=== PATIENT | male | born 1940 | race Caucasian/White ===

== ENCOUNTER 2019-04-10 06:03 | Emergency (ER) | payer MEDICARE, BC ==
--- NOTE | 2019-04-10 06:34 | EDM.PDOC ---
<Arturo Baker - Last Filed: 04/10/19 06:57> ED HPI GENERAL MEDICAL PROBLEM - General Chief Complaint: Abdominal Pain Stated Complaint: DIZZY,ABDOMINAL TENDERNESS Time Seen by Provider: 04/10/19 06:14 Source of Information: Reports: Patient, RN Notes Reviewed, Other (Neighbor who brought pt to the ED) History Limitations: Reports: No Limitations - History of Present Illness INITIAL COMMENTS - FREE TEXT/NARRATIVE: The patient states that he went on a fishing trip, and miscalculated his medications. He states that he has a history of BPH, but wound up skipping his prostate medications for 3-4 days at the beginning of this week. He resumed taking them on 04/08/2019 and yesterday, 04/09/2019, but he has not taken them today. His last urine stream was about a week ago, although he has has "little squirts" since then. His last bowel movement was about one week ago. He states that he started feeling abdominal bloating and pain with movement around 17:00 to 18;00 last evening. He took 2 bisacodyl around 17:00. He developed nausea and lightheadedness when upright around 23:00, then had some emesis around 02:00 this morning. No recent fever. No back or flank pain. The patient states that he does not have a history of constipation. The patient's PCP is Dr. Lew. The patient's Urologist, whose name he does not recall, is at [facility]. Abdominal Pain Score (Numeric/FACES): 8 - Related Data Allergies Allergy/AdvReac Type Severity Reaction Status Date / Time No Known Allergies Allergy Verified 04/10/19 06:14 Home Meds: Home Meds Tamsulosin HCl 04/10/19 [History] Terazosin [Hytrin] 04/10/19 [History] Past Medical History Cardiovascular History: Reports: High Cholesterol (untreated) Genitourinary History: Reports: BPH Musculoskeletal History: Reports: Fracture (left clavicle) - Past Surgical History HEENT Surgical History: Reports: Oral Surgery (wisdom teeth extraction) GI Surgical History: Reports: Appendectomy, Cholecystectomy Musculoskeletal Surgical History: Reports: ORIF (left clavicle) Social & Family History - Tobacco Use Smoking Status *Q: Never Smoker - Alcohol Use Alcohol Use History: Yes Alcohol Use Frequency: Socially - Recreational Drug Use Recreational Drug Use: No - Living Situation & Occupation Living situation: Reports: , Alone ( is at [facility]) Occupation: Retired ED ROS GENERAL - Review of Systems Review Of Systems: ROS reveals no pertinent complaints other than HPI. ED EXAM, GENERAL - Physical Exam Exam: See Below Exam Limited By: No Limitations General Appearance: Alert, WD/WN, No Apparent Distress Eye Exam: Bilateral Eye: EOMI, Normal Inspection Ears: Normal External Exam, Hearing Grossly Normal Nose: Normal Inspection Throat/Mouth: Normal Inspection, Normal Lips, Normal Voice, No Airway Compromise Head: Atraumatic, Normocephalic Neck: Normal Inspection, Full Range of Motion Respiratory/Chest: No Respiratory Distress, Lungs Clear, Normal Breath Sounds, No Accessory Muscle Use Cardiovascular: Normal Peripheral Pulses, Regular Rate, Rhythm, No Gallop, No JVD, No Murmur, No Rub Peripheral Pulses: 4+: Radial (L), Radial (R) GI/Abdominal: Normal Bowel Sounds, No Distention, No Abnormal Bruit, Tender ( Firm/full bladder, tender to palpation), Other (Obese) (Male) Exam: Deferred Rectal (Males) Exam: Deferred Back Exam: Normal Inspection, Full Range of Motion. No: CVA Tenderness (L), CVA Tenderness (R) Extremities: Normal Inspection, Normal Range of Motion, Normal Capillary Refill , Other (Trace to 1+ pretibial pitting edema - chronic) Neurological: Alert, Oriented, Normal Cognition, No Motor/Sensory Deficits Psychiatric: Normal Affect Skin Exam: Warm, Dry, Intact, Normal Color, No Rash Course - Vital Signs Last Recorded V/S: Last Vital Signs Temp 36.9 C 04/10/19 06:11 Pulse 90 04/10/19 06:11 Resp 18 04/10/19 06:11 BP 158/92 H 04/10/19 06:11 Pulse Ox 98 04/10/19 06:11 - Orders/Labs/Meds Orders: Active Orders 24 hr Category Date Time Status Bladder Scan [RC] ASDIRECTED Care 04/10/19 06:18 Active Steinberg Catheter Insertion [Insert Urinary Catheter] [OM. Care 04/10/19 06:45 Ordered PC] Q24H Orthostatic Vital Signs [RC] STAT Care 04/10/19 06:18 Active Urinary Catheter Assessment [RC] ASDIRECTED Care 04/10/19 06:37 Active KUB [Abdomen 1V Flat] [CR] Stat Exams 04/10/19 06:17 Taken Labs: Laboratory Tests 04/10/19 Range/Units 07:10 Urine Color Yellow (Yellow) Urine Appearance Clear (Clear) Urine pH 6.0 (5.0-8.0) Ur Specific [place] 1.020 (1.005-1.030) Urine Protein 1+ H (Negative) Urine Glucose (UA) Negative (Negative) Urine Ketones Negative (Negative) Urine Occult Blood 1+ H (Negative) Urine Nitrite Negative (Negative) Urine Bilirubin Negative (Negative) Urine Urobilinogen 0.2 (0.2-1.0) Ur Leukocyte Esterase Negative (Negative) Urine RBC 5-10 H (0-5) /hpf Urine WBC 0-5 (0-5) /hpf Ur Squamous Epith Cells 0-5 (0-5) /hpf Amorphous Sediment Few H (NOT SEEN) /hpf Urine Bacteria Few (FEW) /hpf Urine Mucus Few (FEW) /hpf Meds: Medications Discontinued Medications Generic Name Dose Route Start Last Admin Trade Name Coby PRN Reason Stop Dose Admin Lidocaine HCl 10 ml 04/10/19 06:38 04/10/19 07:00 Xylocaine 2% Jelly MUCMEM 04/10/19 06:39 10 ml ONETIME ONE Administration - Re-Assessments/Exams Free Text/Narrative Re-Assessment/Exam: 04/10/19 06:32 On examination, the patient appears to have a very full bladder, likely due to urinary retention because of skipping his prostate medications. It is possible that his bladder is so full that it is putting retrograde pressure on his rectum , causing constipation. I have therefore ordered a bladder scan and a KUB. Because of the patient's complaint of lightheadedness when upright since late last night, I have ordered orthostatics. At this time, I don't see the need for blood work, but that may change based on his findings. 04/10/19 06:34 Notified by Jaquelin CALLES that the bladder scan is indicating 1100 mL of urine. 04/10/19 06:38 I gave the patient the option of draining his bladder with a catheter, with either leaving the catheter in place, or removing it. I explained that if it is removed, the patient may be back here in a few hours, again unable to urinate. The patient preferred leaving the catheter in place. I have ordered a Urojet and a Steinberg catheter to a leg bag along with a urinalysis. 04/10/19 06:[address] Lentz, and care of the patient turned over to him at this time, for change of shift. Departure - Departure Disposition: Home, Self-Care 01 Clinical Impression: Urinary retention due to benign prostatic hyperplasia Abdominal pain Qualifiers: Abdominal location: lower abdomen, unspecified Qualified Code(s): R10.30 - Lower abdominal pain, unspecified - Discharge Information Instructions: Benign Prostatic Hyperplasia, Acute Urinary Retention, Male Referrals: Emiliano Lew MD [Primary Care Provider] - Forms: ED Department Discharge Additional Instructions: Evaluation the emergency room this morning in regards to development of urinary retention over the last week. This appears to be secondary to unavailability of normal medications that you take for an enlarged prostate. Identified 1100 mils of urine in the urinary bladder at the time of bladder scan. He also identified significant problems trying to have a bowel movement the last week or so. Constipation is caused by urinary retention and vice versa. You're treated with a Steinberg catheter to decompress the urinary bladder. An x-ray of the abdomen reveals a small amount of stool in the cecum or right lower colon but the rectal vault is empty. There is a small amount of small bowel dilatation in the left upper quadrant and which will resolve as the day goes on once the urinary retention has been relieved. It is my suggestion of the Steinberg catheter remain in place for 3 days to allow the bladder told to return. You could remove the Steinberg catheter in 3 days time. Of course return to medical care if you are unable to void within 8-10 hours of catheter removal. The urinalysis did not detect any signs of urinary tract infection. Follow-up with personal care physician or urologist if any further problems occur or return to the ED. <Josiah Lentz - Last Filed: 04/10/19 07:55> Course - Re-Assessments/Exams Free Text/Narrative Re-Assessment/Exam: 04/10/19 07:30: Care was assumed from Dr. Hawley at change of shift. KUB is completed it reveals some stool in the cecum but the remainder the colon is for the most part empty particularly the rectal vault. There is an ileus type pattern with several dilated loops of small bowel in the left hemiabdomen but no signs of bowel obstruction. Patient feels markedly improved since bladder decompression with Steinberg catheter. Awaiting urinalysis. 04/10/19 07:48Urinalysis shows 1+ protein 1+ occult blood 5-10 RBCs but no pus cells. Plan will be to leave the Steinberg catheter in for 3 days to allow the bladder tone to return. He has restarted his medications for his prostate gland which includes prazosin and Flomax. Patient advised of the findings. Plan will be to have him remove his Steinberg catheter in 3 days time since he feels quite carpal in doing so as he practice pattern her medicine most of his life. He will follow-up of course if he cannot void within 8 hours of catheter removal. Departure - Departure Time of Disposition: 07:51 Condition: Fair - Discharge Information *PRESCRIPTION DRUG MONITORING PROGRAM REVIEWED*: Not Applicable *COPY OF PRESCRIPTION DRUG MONITORING REPORT IN PATIENT ARCELIA: Not Applicable
[2019-04-10] MEDS ORDERED: Lidocaine 2% Jelly 10 ML Urojet MUCMEM ONE (06:38)
--- NOTE | 2019-04-11 07:21 | CR ---
Abdomen: Supine view of the abdomen was obtained. Comparison: No previous study. Bowel gas pattern shows slight increased small bowel gas within the left abdomen. Gas within colon is seen which is unremarkable. Degenerative change is noted within the spine. Calcifications are seen within the pelvis compatible with phleboliths. Joint space narrowing is seen within the right hip. Impression: 1. Slightly prominent small bowel gas within the left abdomen most likely due to swallowed air. 2. Other incidental findings. Nothing acute is seen. Diagnostic code #2
== END 2019-04-10 08:04 | disposition home or self-care (01) ==
LOC: JD.ED 06:03
DX: N40.1 Benign prostatic hyperplasia with lower urinary tract symptoms (principal); R33.9 Retention of urine, unspecified
CPT/HCPCS: 51702; 51798; 74018; 74018-26; 81001; 99283; 99284-25

== ENCOUNTER 2019-04-12 13:51 | Emergency (ER) | payer MEDICARE, BC ==
[2019-04-12] MEDS ORDERED: Lidocaine 2% Jelly 10 ML Urojet MUCMEM ONE (14:09)
--- NOTE | 2019-04-12 14:14 | EDM.PDOC ---
ED HPI GENERAL MEDICAL PROBLEM - General Chief Complaint: Genitourinary Problem Stated Complaint: UNABLE TO URINATE Time Seen by Provider: 04/12/19 14:08 Source of Information: Reports: Patient History Limitations: Reports: No Limitations - History of Present Illness INITIAL COMMENTS - FREE TEXT/NARRATIVE: 78-year-old male presents to the ED unable to void since Steinberg catheter is removed 8 hours ago. Diffuse lower abdominal pain with some cramping. Unable to express any urine whatsoever. Once Steinberg is been in for the last 3 days he had no problem passing his bowels. He has been scheduled for urology appointment tomorrow in [place]. Leaves his last PSA was around 4.2. He took the catheter out about 8:00 this morning and is about 1400 hrs. 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.) - Related Data Allergies Allergy/AdvReac Type Severity Reaction Status Date / Time No Known Allergies Allergy Verified 04/12/19 14:00 Home Meds: Home Meds Terazosin [Hytrin] 10 mg PO DAILY 04/10/19 [History] Finasteride [Proscar] 5 mg PO DAILY 04/12/19 [History] Past Medical History Cardiovascular History: Reports: High Cholesterol Respiratory History: Reports: None Genitourinary History: Reports: BPH Musculoskeletal History: Reports: Fracture Neurological History: Reports: None Psychiatric History: Reports: None Endocrine/Metabolic History: Reports: None Hematologic History: Reports: None Immunologic History: Reports: None Oncologic (Cancer) History: Reports: None Dermatologic History: Reports: None - Infectious Disease History Infectious Disease History: Reports: None - Past Surgical History Head Surgeries/Procedures: Reports: None HEENT Surgical History: Reports: Oral Surgery GI Surgical History: Reports: Appendectomy, Cholecystectomy Musculoskeletal Surgical History: Reports: ORIF Social & Family History - Caffeine Use Caffeine Use: Reports: None - Recreational Drug Use Recreational Drug Use: No - Living Situation & Occupation Living situation: Reports: , Alone ( is at [facility] [employer]) Occupation: Retired ED ROS GENERAL - Review of Systems Review Of Systems: See Below Constitutional: Reports: No Symptoms HEENT: Reports: No Symptoms Respiratory: Reports: No Symptoms Cardiovascular: Reports: No Symptoms Endocrine: Reports: No Symptoms GI/Abdominal: Reports: Abdominal Pain (See history of present illness.) : Reports: Urinary Retention (Presents once again in urinary retention. Has known BPH and is on Proscar and Flomax for many years.), Other (Known BPH for many years. He's been on Proscar for many years and it suspect that he was also on Flomax with the Proscar up until a short period of time ago.) Musculoskeletal: Reports: Joint Pain Skin: Reports: No Symptoms (Occasional pain knees hips low back and neck.) Neurological: Reports: No Symptoms Psychiatric: Reports: No Symptoms Hematologic/Lymphatic: Reports: No Symptoms Immunologic: Reports: No Symptoms ED EXAM, RENAL/ - Physical Exam Exam: See Below Exam Limited By: No Limitations General Appearance: Alert, WD/WN, Mild Distress (He is obviously quite uncomfortable.) Respiratory/Chest: No Respiratory Distress, Lungs Clear, Normal Breath Sounds, No Accessory Muscle Use Cardiovascular: Normal Peripheral Pulses, Regular Rate, Rhythm, No Edema, No Gallop, No Murmur, No Rub GI/Abdominal: Non-Tender, No Organomegaly, Pelvis Stable, Distended (Bowel sounds are quiet sent in all 4 quadrants distended and tympanitic to percussion up to the umbilicus.), Abnormal Bowel Sounds Back Exam: Normal Inspection, Full Range of Motion. No: CVA Tenderness (L), CVA Tenderness (R) Extremities: Normal Inspection, Normal Range of Motion, Non-Tender, No Pedal Edema Neurological: Alert, Oriented, CN II-XII Intact, Normal Cognition Psychiatric: Normal Affect, Normal Mood Skin Exam: Warm, Dry, Intact, Normal Color, No Rash Course - Vital Signs Last Recorded V/S: Last Vital Signs Temp 36.8 C 04/12/19 13:57 Pulse 70 04/12/19 13:57 Resp 18 04/12/19 13:57 BP 137/76 04/12/19 13:57 Pulse Ox 95 04/12/19 13:57 - Orders/Labs/Meds Orders: Active Orders 24 hr Category Date Time Status Bladder Irrigation [RC] BID Care 04/12/19 14:08 Active Steinberg Catheter Insertion [Insert Urinary Catheter] [OM. Care 04/12/19 14:15 Ordered PC] Q24H Urinary Catheter Assessment [RC] ASDIRECTED Care 04/12/19 14:09 Active URINALYSIS W/MICROSCOPIC [UA W/MICROSCOPIC] [URIN] Stat Lab 04/12/19 15:02 Ordered Meds: Medications Discontinued Medications Generic Name Dose Route Start Last Admin Trade Name Coby PRN Reason Stop Dose Admin Levofloxacin 500 mg 04/12/19 15:01 Levaquin PO 04/12/19 15:02 ONETIME ONE Lidocaine HCl 10 ml 04/12/19 14:09 04/12/19 14:23 Xylocaine 2% Jelly MUCMEM 04/12/19 14:10 10 ml ONETIME ONE Administration - Radiology Interpretation Free Text/Narrative:: 78-year-old male presents to the ED with acute urinary retention. Patient had troubles while he was away fishing over the last week and he had forgotten his medications that he's been taking long-term for benign prostatic hypertrophy. This includes according to the patient both Proscar and Flomax. Once he got home weighted find that he was in urinary retention and a Steinberg catheter was placed in the ED and he was advised to resume his medications which he already done so. Advise Steinberg catheter for 3 days and then remove it and see if he could void on his own. He remove the Steinberg catheter 8:00 this morning and is now 1400 hrs. and he's been unable to void and is feeling quite uncomfortable in the lower abdomen. Clinically the bladder is palpable up to the umbilicus suggesting over thousand mils in his bladder. Plan will be to reintroduce a Steinberg catheter to gravity drainage to a leg bag. He has an appointment to see him I Dr. Cano tomorrow in [place] was a urologist. There is some question as to whether he is supposed to be on Flomax with Proscar. - Re-Assessments/Exams Free Text/Narrative Re-Assessment/Exam: 04/12/19 15:06 Steinberg catheter placed and drainage of clear urine greater than 700 mils noted at this time. A sample is to be sent for analysis. He will be given Levaquin 500 mg by mouth due to recent instrumentation i.e. in and out of Steinberg catheter to prevent any bacteremia. Departure - Departure Time of Disposition: 15:00 Disposition: Home, Self-Care 01 Condition: Fair Clinical Impression: Acute urinary retention, Benign prostatic hyperplasia with urinary obstruction - Discharge Information *PRESCRIPTION DRUG MONITORING PROGRAM REVIEWED*: Not Applicable *COPY OF PRESCRIPTION DRUG MONITORING REPORT IN PATIENT ARCELIA: Not Applicable Referrals: Emiliano Lew MD [Primary Care Provider] - Forms: ED Department Discharge Additional Instructions: Evaluation the emergency room today in regards to recurrence of urinary retention after removing the Steinberg catheter at 8:00 this morning. You have been unable to void. Steinberg catheter was therefore reinserted to provide drainage of urine until you can follow-up with urology services tomorrow. He will need a cystoscopy which means a scope look in the bladder to see where the obstruction is provided by history you're enlarged prostate is most likely the culprit. Once medications no longer are effectual surgeries usually indicated. You were given 1 tablet of Levaquin 500 mg in the ED to prevent any urinary tract infection from occurring from recurrent placement of Steinberg catheter. - My Orders Last 24 Hours: My Active Orders 04/12/19 14:08 Bladder Irrigation [RC] BID 04/12/19 14:09 Urinary Catheter Assessment [RC] ASDIRECTED 04/12/19 14:15 Steinberg Catheter Insertion [Insert Urinary Catheter] [OM.PC] Q24H 04/12/19 15:02 URINALYSIS W/MICROSCOPIC [UA W/MICROSCOPIC] [URIN] Stat - Assessment/Plan Last 24 Hours: My Active Orders 04/12/19 14:08 Bladder Irrigation [RC] BID 04/12/19 14:09 Urinary Catheter Assessment [RC] ASDIRECTED 04/12/19 14:15 Steinberg Catheter Insertion [Insert Urinary Catheter] [OM.PC] Q24H 04/12/19 15:02 URINALYSIS W/MICROSCOPIC [UA W/MICROSCOPIC] [URIN] Stat
[2019-04-12] MEDS ORDERED: Levofloxacin 250 MG Tab PO ONE (15:01)
== END 2019-04-12 15:46 | disposition home or self-care (01) ==
LOC: JD.ED 13:51
DX: N40.1 Benign prostatic hyperplasia with lower urinary tract symptoms (principal); R33.8 Other retention of urine; E78.00 Pure hypercholesterolemia, unspecified; Z79.899 Other long term (current) drug therapy
CPT/HCPCS: 51702; 51798; 81001; 99283; A9270

== ENCOUNTER 2019-11-25 08:02 | Emergency (ER) | payer MEDICARE, BC ==
[2019-11-25] MEDS ORDERED: Albuterol/Ipratropium 3.0-0.5 MG/3 ML Neb Soln NEB ONE ×2 (08:48→10:56)
--- NOTE | 2019-11-25 08:48 | EDM.PDOC ---
<Meredith Paul - Last Filed: 11/25/19 08:37> ED HPI GENERAL MEDICAL PROBLEM - General Chief Complaint: Respiratory Problem Stated Complaint: SOB Time Seen by Provider: 11/25/19 08:24 Source of Information: Reports: Patient History Limitations: Reports: No Limitations - History of Present Illness INITIAL COMMENTS - FREE TEXT/NARRATIVE: 79-year-old male presents with cough and shortness of breath that has been going on for about a week. He states that they came on at roughly the same time. The cough is productive, producing a clear mucus. Shortness of breath is worse with activity and states that his chest feels "tight". His cough and shortness of breath gets worse with warm air (being indoors) and improves with cold air and ventolin. He states that he has been trying his 's ventolin that she had gotten last year and it seems to give him relief for about 10 minutes. He has also been using guaifenesin that has been mildly beneficial. The patient denies any history of heart or lung conditions. He also denies chest pain, congestion, ear pain, sore throat, body aches, fever/chills, nausea/ vomiting, and changes to stools. Duration: Constant Location: Reports: Chest Improves with: Reports: Cold Therapy (going outside), Medication (ventolin ) Worsens with: Reports: Heat Therapy (being indoors) Associated Symptoms: Reports: cough w sputum, Shortness of Breath. Denies: Fever/Chills, Headaches, Nausea/Vomiting Treatments DAMAGE APPRAISER: Reports: Breathing Treatments (ventolin), Other (see below) ( guaifenesin ) - Related Data Allergies Allergy/AdvReac Type Severity Reaction Status Date / Time No Known Allergies Allergy Verified 11/25/19 08:23 Home Meds: Home Meds Terazosin [Hytrin] 10 mg PO DAILY 04/10/19 [History] Finasteride [Proscar] 5 mg PO DAILY 04/12/19 [History] Albuterol [Proventil HFA] 2 puff INH Q4H PRN #1 inhaler 11/25/19 [Rx] Azithromycin [Zithromax] 250 mg PO DAILY #6 tab 11/25/19 [Rx] Codeine/Promethazine [Phenergan with Codeine] 5 - 10 ml PO Q6HR PRN #300 ml [Rx] Past Medical History Cardiovascular History: Reports: High Cholesterol Respiratory History: Reports: None Genitourinary History: Reports: BPH Musculoskeletal History: Reports: Fracture Neurological History: Reports: None Psychiatric History: Reports: None Endocrine/Metabolic History: Reports: None Hematologic History: Reports: None Immunologic History: Reports: None Oncologic (Cancer) History: Reports: None Dermatologic History: Reports: None - Infectious Disease History Infectious Disease History: Reports: None - Past Surgical History Head Surgeries/Procedures: Reports: None HEENT Surgical History: Reports: Oral Surgery GI Surgical History: Reports: Appendectomy, Cholecystectomy Musculoskeletal Surgical History: Reports: ORIF Social & Family History - Tobacco Use Smoking Status *Q: Current Some Day Smoker Years of Tobacco use: 30 Packs/Tins Daily: 0.1 - Caffeine Use Caffeine Use: Reports: None - Recreational Drug Use Recreational Drug Use: No - Living Situation & Occupation Living situation: Reports: , Alone ( is at [facility]) Occupation: Retired ED ROS GENERAL - Review of Systems Review Of Systems: See Below Constitutional: Reports: No Symptoms HEENT: Reports: No Symptoms Respiratory: Reports: Shortness of Breath, Wheezing, Cough, Sputum. Denies: Pleuritic Chest Pain, Hemoptysis Cardiovascular: Reports: No Symptoms GI/Abdominal: Reports: No Symptoms : Reports: No Symptoms, Other (BPH) Musculoskeletal: Reports: No Symptoms Skin: Reports: No Symptoms Neurological: Reports: No Symptoms Psychiatric: Reports: No Symptoms Hematologic/Lymphatic: Reports: No Symptoms Immunologic: Reports: No Symptoms ED EXAM, GENERAL - Physical Exam Exam: See Below Exam Limited By: No Limitations General Appearance: Alert, WD/WN, Mild Distress (coughing during visit) Ears: Normal External Exam, Normal Canal, Hearing Grossly Normal, Normal TMs Nose: Normal Inspection, Normal Mucosa, No Blood Throat/Mouth: Normal Inspection, Normal Lips, Normal Teeth, Normal Gums, Normal Oropharynx, Normal Voice, No Airway Compromise Neck: Normal Inspection, Supple, Non-Tender, Full Range of Motion. No: Lymphadenopathy (L), Lymphadenopathy (R) Respiratory/Chest: No Accessory Muscle Use, Chest Non-Tender, Respiratory Distress (coughing), Wheezing Cardiovascular: Normal Peripheral Pulses, Regular Rate, Rhythm, No Murmur Neurological: Alert, Oriented, Normal Cognition, No Motor/Sensory Deficits Psychiatric: Normal Affect, Normal Mood Skin Exam: Warm, Dry, Intact, Normal Color, No Rash Lymphatic: No Adenopathy Course - Vital Signs Last Recorded V/S: Last Vital Signs Temp 97.7 F 11/25/19 08:20 Pulse 72 11/25/19 08:20 Resp 19 11/25/19 08:20 BP 146/73 H 11/25/19 08:20 Pulse Ox 95 11/25/19 11:01 - Orders/Labs/Meds Orders: Active Orders 24 hr Category Date Time Status RT Aerosol Therapy [RC] ASDIRECTED Care 11/25/19 08:48 Active RT Aerosol Therapy [RC] ASDIRECTED Care 11/25/19 10:56 Active Meds: Medications Discontinued Medications Generic Name Dose Route Start Last Admin Trade Name Eddieq PRN Reason Stop Dose Admin Albuterol/Ipratropium 3 ml 11/25/19 08:48 11/25/19 09:06 Duoneb 3.0-0.5 Mg/3 Ml NEB 11/25/19 08:49 3 ml ONETIME ONE Administration Albuterol/Ipratropium 3 ml 11/25/19 10:56 11/25/19 11:00 Duoneb 3.0-0.5 Mg/3 Ml NEB 11/25/19 10:57 3 ml ONETIME ONE Administration Departure - Departure Disposition: Home, Self-Care 01 Clinical Impression: Bronchitis - Discharge Information Prescriptions: Codeine/Promethazine [Phenergan with Codeine] 5 - 10 ml PO Q6HR PRN #300 ml PRN Reason: Cough Albuterol [Proventil HFA] 2 puff INH Q4H PRN #1 inhaler PRN Reason: Shortness Of Breath Azithromycin [Zithromax] 250 mg PO DAILY #6 tab Referrals: Emiliano Lew MD [Primary Care Provider] - 1 Week Forms: ED Department Discharge Additional Instructions: Take the zithromax 2 pills on day 1 and 1 pill on day 2 through 5. Use the inhaler 2 puffs every 4 to 6 hours as needed for shortness of breath. Use the phenergan with codeine 5 to 10mls every 6 hours as needed for cough. Please return if you are worse. Sepsis Event Note - Evaluation Sepsis Screening Result: No Definite Risk - Focused Exam Vital Signs: Vital Signs Temp Pulse Resp BP Pulse Ox Pulse Ox 11/25/19 11:01 95 11/25/19 09:06 97 11/25/19 08:20 97.7 F 72 19 146/73 H 96 Date Exam was Performed: 11/25/19 Time Exam was Performed: 08:37 - My Orders Last 24 Hours: My Active Orders 11/25/19 08:48 RT Aerosol Therapy [RC] ASDIRECTED 11/25/19 10:56 RT Aerosol Therapy [RC] ASDIRECTED - Assessment/Plan Last 24 Hours: My Active Orders 11/25/19 08:48 RT Aerosol Therapy [RC] ASDIRECTED 11/25/19 10:56 RT Aerosol Therapy [RC] ASDIRECTED <Lamin Paul - Last Filed: 11/25/19 11:17> Course - Re-Assessments/Exams Free Text/Narrative Re-Assessment/Exam: 11/25/19 11:11 I examined the patient myself and I agree with Meredith's assessment and plan. I ordered a CXR, duoneb and influenza. His CXR looks good. The influenza was negative. He did feel better with the duoneb. I will get him on some albuterol , zithromax, and phenergan with codeine. Departure - Departure Time of Disposition: 11:15 Condition: Good - Discharge Information *PRESCRIPTION DRUG MONITORING PROGRAM REVIEWED*: No *COPY OF PRESCRIPTION DRUG MONITORING REPORT IN PATIENT ARCELIA: No Sepsis Event Note - Focused Exam Date Exam was Performed: 11/25/19 Time Exam was Performed: 11:10
--- NOTE | 2019-11-25 09:57 | CR ---
Chest: Two views of the chest were obtained. Comparison: No prior chest imaging. Heart size and mediastinum are normal. Lungs are clear with no acute parenchymal change. Diffuse endplate spurring is noted throughout the thoracic spine. Vertebral body heights are maintained. Minimal scoliosis is also noted. Impression: 1. Findings as noted above. 2. Nothing acute is appreciated on two-view chest x-ray. Diagnostic code #2 This report was dictated in [place] Standard Time
== END 2019-11-25 11:44 | disposition home or self-care (01) ==
LOC: JD.ED 08:02
DX: J40 Bronchitis, not specified as acute or chronic (principal); N40.0 Benign prostatic hyperplasia without lower urinary tract symptoms; F17.210 Nicotine dependence, cigarettes, uncomplicated; Z79.899 Other long term (current) drug therapy
CPT/HCPCS: 71046; 71046-26; 87804; 94640; 99283; 99285-25; J7620-GY